=== PATIENT | female | born 1970 | race Caucasian/White ===

== ENCOUNTER 2019-06-19 07:00 | Day surgery (SDC) | payer BC ==
[2019-06-19] MEDS ORDERED: ceFAZolin 2 GM in Premix Bag 1 BAG IV ONE (07:04)
[2019-06-19] MEDS ORDERED: Sodium Chloride 0.9% 2.5 ML Syringe FLUSH PRN (07:04)
[2019-06-19] MEDS ORDERED: Sodium Chloride 0.9% 10 ML Syringe FLUSH PRN (07:04)
[2019-06-19] MEDS ORDERED: Sodium Chloride 0.9% 10 ML SDV IV PRN (07:04)
[2019-06-19] MEDS ORDERED: Midazolam 1 MG/ML 2 ML SDV ONE (07:23)
[2019-06-19] MEDS ORDERED: Propofol 200 MG/20 ML SDV ONE (07:23)
[2019-06-19] MEDS ORDERED: Dexamethasone 4 MG/ML 5 ML MDV ONE (07:24)
[2019-06-19] MEDS ORDERED: Ondansetron 4 MG/2 ML SDV ONE ×2 (07:24→09:53)
[2019-06-19] MEDS ORDERED: Rocuronium 100 MG/10 ML Syringe ONE (07:24)
[2019-06-19] MEDS ORDERED: Lidocaine 2% 5 ML SDV ONE (07:24)
[2019-06-19] MEDS ORDERED: fentaNYL 250 MCG/5 ML SDV ONE ×2 (07:24→09:08)
[2019-06-19] MEDS ORDERED: Bupivacaine 0.25% 10 ML SDV ONE ×2 (07:32→07:41)
[2019-06-19] MEDS ORDERED: Fluorescein 5 ML Vial ONE (07:32)
[2019-06-19] MEDS ORDERED: Sugammadex Sodium 200 MG/2 ML VIAL ONE (07:43)
[2019-06-19] MEDS: Lactated Ringers 1,000 ML IV SCH ×2 (07:45→16:23)
[2019-06-19] MEDS ORDERED: ceFAZolin 1 GM Vial ONE (07:53)
--- NOTE | 2019-06-19 07:53 | PCM.PREANE ---
Preanesthetic Assessment - Anesthesia/Transfusion/Family Hx Anesthesia History: Prior Anesthesia Without Reaction Other Type of Anesthesia Reaction Comment: Pt adopted, family history unknown Transfusion History: No Prior Transfusion(s) - Physical Assessment Vital Signs: Last Vital Signs Temp 97.9 F 06/19/19 07:48 Pulse 65 06/19/19 07:48 Resp 16 06/19/19 07:48 BP 150/78 H 06/19/19 07:48 Pulse Ox 100 06/19/19 07:48 Height: 5 ft 1 in Weight: 74.843 kg - Lab Values: Laboratory Last Values WBC 8.48 K/uL (4.0-11.0) 06/19/19 07:18 RBC 4.17 M/uL (4.30-5.90) L 06/19/19 07:18 Hgb 14.4 g/dL (12.0-16.0) 06/19/19 07:18 Hct 43.6 % (36.0-46.0) 06/19/19 07:18 MCV 104.6 fL (80.0-98.0) H 06/19/19 07:18 MCH 34.5 pg (27.0-32.0) H 06/19/19 07:18 MCHC 33.0 g/dL (31.0-37.0) 06/19/19 07:18 RDW Std Deviation 51.5 fl (28.0-62.0) 06/19/19 07:18 RDW Coeff of Ramiro 14 % (11.0-15.0) 06/19/19 07:18 Plt Count 194 K/uL (150-400) 06/19/19 07:18 MPV 11.20 fL (7.40-12.00) 06/19/19 07:18 Neut % (Auto) 71.6 % (48.0-80.0) 06/19/19 07:18 Lymph % (Auto) 19.0 % (16.0-40.0) 06/19/19 07:18 [place] % (Auto) 7.9 % (0.0-15.0) 06/19/19 07:18 Eos % (Auto) 1.3 % (0.0-7.0) 06/19/19 07:18 Baso % (Auto) 0.2 % (0.0-1.5) 06/19/19 07:18 Neut # (Auto) 6.1 K/uL (1.4-5.7) H 06/19/19 07:18 Lymph # (Auto) 1.6 K/uL (0.6-2.4) 06/19/19 07:18 [place] # (Auto) 0.7 K/uL (0.0-0.8) 06/19/19 07:18 Eos # (Auto) 0.1 K/uL (0.0-0.7) 06/19/19 07:18 Baso # (Auto) 0.0 K/uL (0.0-0.1) 06/19/19 07:18 Nucleated RBC % 0.0 /100WBC 06/19/19 07:18 Nucleated RBCs # 0 K/uL 06/19/19 07:18 Sodium 140 mmol/L (136-145) 06/19/19 07:18 Potassium 4.3 mmol/L (3.5-5.1) 06/19/19 07:18 Chloride 106 mmol/L (98-107) 06/19/19 07:18 Carbon Dioxide 24.4 mmol/L (21.0-32.0) 06/19/19 07:18 BUN 24 mg/dL (7.0-18.0) H 06/19/19 07:18 Creatinine 1.0 mg/dL (0.6-1.0) 06/19/19 07:18 Est Cr Clr Drug Dosing 51.92 mL/min 06/19/19 07:18 Estimated GFR (MDRD) 59.2 ml/min 06/19/19 07:18 Glucose 102 mg/dL (74-106) 06/19/19 07:18 Calcium 9.1 mg/dL (8.5-10.1) 06/19/19 07:18 HCG, Qual NEGATIVE (NEG) 06/19/19 07:18 - Allergies Allergies/Adverse Reactions: Allergies Allergy/AdvReac Type Severity Reaction Status Date / Time No Known Allergies Allergy Verified 06/16/19 06:51 PreAnesthesia Questionnaire HEENT History: Reports: Other (See Below) Other HEENT History: wears glasses, top denture Cardiovascular History: Reports: None Respiratory History: Reports: None Gastrointestinal History: Reports: Cholelithiasis Genitourinary History: Reports: None [employer] OPERATOR History: Reports: Musculoskeletal History: Reports: None Neurological History: Reports: None Psychiatric History: Reports: Depression Endocrine/Metabolic History: Reports: Obesity/BMI 30+ Hematologic History: Reports: None Immunologic History: Reports: None Oncologic (Cancer) History: Reports: Cervix Dermatologic History: Reports: Other (See Below) Other Dermatologic History: hx axillary absess-MRSA diagnosis - Infectious Disease History Infectious Disease History: Reports: Chicken Pox, MRSA - Past Surgical History Head Surgeries/Procedures: Reports: None HEENT Surgical History: Reports: None Cardiovascular Surgical History: Reports: None Respiratory Surgical History: Reports: None GI Surgical History: Reports: Cholecystectomy Female Surgical History: Reports: LEEP, Tubal Ligation Endocrine Surgical History: Reports: None Neurological Surgical History: Reports: None Musculoskeletal Surgical History: Reports: None Oncologic Surgical History: Reports: None Dermatological Surgical History: Reports: None - SUBSTANCE USE Smoking Status *Q: Former Smoker Tobacco Use Within Last Twelve Months: Cigarettes - HOME MEDS Home Medications: Home Meds Sertraline HCl 50 mg PO DAILY 06/16/19 [History] - CURRENT (IN HOUSE) MEDS Current Meds: Current Medications Lactated Ringer's (Ringers, Lactated) 1,000 mls @ 125 mls/hr IV ASDIRECTED DONNA Last Admin: 06/19/19 07:45 Dose: 125 mls/hr Sodium Chloride (Saline Flush) 10 ml FLUSH ASDIRECTED PRN PRN Reason: Keep Vein Open Sodium Chloride (Saline Flush) 2.5 ml FLUSH ASDIRECTED PRN PRN Reason: Keep Vein Open Sodium Chloride (Normal Saline) 10 ml IV ASDIRECTED PRN PRN Reason: IV Use Discontinued Medications Bupivacaine HCl (Sensorcaine-Mpf 0.25%) Confirm Administered Dose 10 ml .ROUTE .STK-MED ONE Stop: 06/19/19 07:33 Bupivacaine HCl (Sensorcaine-Mpf 0.25%) Confirm Administered Dose 10 ml .ROUTE .STK-MED ONE Stop: 06/19/19 07:42 Dexamethasone (Dexamethasone) Confirm Administered Dose 20 mg .ROUTE .STK-MED ONE Stop: 06/19/19 07:25 Fentanyl (Sublimaze) Confirm Administered Dose 250 mcg .ROUTE .STK-MED ONE Stop: 06/19/19 07:25 Fluorescein Sodium (Ak-Fluor) Confirm Administered Dose 5 ml .ROUTE .STK-MED ONE Stop: 06/19/19 07:33 Cefazolin Sodium/Dextrose 2 gm (/ Premix) 50 mls @ 100 mls/hr IV ONETIME ONE Stop: 06/19/19 07:33 Acetaminophen (Ofirmev) Confirm Administered Dose 100 mls @ as directed IV .STK- MED ONE Stop: 06/19/19 07:45 Lidocaine (Xylocaine-Mpf 2%) Confirm Administered Dose 5 ml .ROUTE .STK-MED ONE Stop: 06/19/19 07:25 Midazolam HCl (Versed 1 Mg/Ml) Confirm Administered Dose 2 mg .ROUTE .STK-MED ONE Stop: 06/19/19 07:24 Ondansetron HCl (Zofran) Confirm Administered Dose 4 mg .ROUTE .STK-MED ONE Stop: 06/19/19 07:25 Propofol (Diprivan 20 Ml) Confirm Administered Dose 200 mg .ROUTE .STK-MED ONE Stop: 06/19/19 07:24 Rocuronium [place] (Zemuron) Confirm Administered Dose 100 mg .ROUTE .STK-MED ONE Stop: 06/19/19 07:25 Sugammadex Sodium (Bridion) Confirm Administered Dose 200 mg .ROUTE .STK-MED ONE Stop: 06/19/19 07:44
--- NOTE | 2019-06-19 07:55 | PCM.PREANE ---
Preanesthetic Assessment - Anesthesia/Transfusion/Family Hx Anesthesia History: Prior Anesthesia Without Reaction Other Type of Anesthesia Reaction Comment: Pt adopted, family history unknown Family History of Anesthesia Reaction: No Transfusion History: No Prior Transfusion(s) - Review of Systems General: No Symptoms Pulmonary: No Symptoms Cardiovascular: No Symptoms Gastrointestinal: No Symptoms Neurological: No Symptoms Other: Reports: None - Physical Assessment Vital Signs: Last Vital Signs Temp 97.9 F 06/19/19 07:48 Pulse 65 06/19/19 07:48 Resp 16 06/19/19 07:48 BP 150/78 H 06/19/19 07:48 Pulse Ox 100 06/19/19 07:48 Height: 5 ft 1 in Weight: 74.843 kg ASA Class: 2 Mental Status: Alert & Oriented x3 Airway Class: Mallampati = 2 Dentition: Reports: Normal Dentition ROM/Head Extension: Full Lungs: Clear to Auscultation, Normal Respiratory Effort Cardiovascular: Regular Rate, Regular Rhythm - Lab Values: Laboratory Last Values WBC 8.48 K/uL (4.0-11.0) 06/19/19 07:18 RBC 4.17 M/uL (4.30-5.90) L 06/19/19 07:18 Hgb 14.4 g/dL (12.0-16.0) 06/19/19 07:18 Hct 43.6 % (36.0-46.0) 06/19/19 07:18 MCV 104.6 fL (80.0-98.0) H 06/19/19 07:18 MCH 34.5 pg (27.0-32.0) H 06/19/19 07:18 MCHC 33.0 g/dL (31.0-37.0) 06/19/19 07:18 RDW Std Deviation 51.5 fl (28.0-62.0) 06/19/19 07:18 RDW Coeff of Ramiro 14 % (11.0-15.0) 06/19/19 07:18 Plt Count 194 K/uL (150-400) 06/19/19 07:18 MPV 11.20 fL (7.40-12.00) 06/19/19 07:18 Neut % (Auto) 71.6 % (48.0-80.0) 06/19/19 07:18 Lymph % (Auto) 19.0 % (16.0-40.0) 06/19/19 07:18 [place] % (Auto) 7.9 % (0.0-15.0) 06/19/19 07:18 Eos % (Auto) 1.3 % (0.0-7.0) 06/19/19 07:18 Baso % (Auto) 0.2 % (0.0-1.5) 06/19/19 07:18 Neut # (Auto) 6.1 K/uL (1.4-5.7) H 06/19/19 07:18 Lymph # (Auto) 1.6 K/uL (0.6-2.4) 06/19/19 07:18 [place] # (Auto) 0.7 K/uL (0.0-0.8) 06/19/19 07:18 Eos # (Auto) 0.1 K/uL (0.0-0.7) 06/19/19 07:18 Baso # (Auto) 0.0 K/uL (0.0-0.1) 06/19/19 07:18 Nucleated RBC % 0.0 /100WBC 06/19/19 07:18 Nucleated RBCs # 0 K/uL 06/19/19 07:18 Sodium 140 mmol/L (136-145) 06/19/19 07:18 Potassium 4.3 mmol/L (3.5-5.1) 06/19/19 07:18 Chloride 106 mmol/L (98-107) 06/19/19 07:18 Carbon Dioxide 24.4 mmol/L (21.0-32.0) 06/19/19 07:18 BUN 24 mg/dL (7.0-18.0) H 06/19/19 07:18 Creatinine 1.0 mg/dL (0.6-1.0) 06/19/19 07:18 Est Cr Clr Drug Dosing 51.92 mL/min 06/19/19 07:18 Estimated GFR (MDRD) 59.2 ml/min 06/19/19 07:18 Glucose 102 mg/dL (74-106) 06/19/19 07:18 Calcium 9.1 mg/dL (8.5-10.1) 06/19/19 07:18 HCG, Qual NEGATIVE (NEG) 06/19/19 07:18 - Allergies Allergies/Adverse Reactions: Allergies Allergy/AdvReac Type Severity Reaction Status Date / Time No Known Allergies Allergy Verified 06/19/19 07:54 - Anesthesia Plan Pre-Op Medication Ordered: None - Acknowledgements Anesthesia Type Planned: General Anesthesia Pt an Appropriate Candidate for the Planned Anesthesia: Yes Alternatives and Risks of Anesthesia Discussed w Pt/Guardian: Yes Pt/Guardian Understands and Agrees with Anesthesia Plan: Yes Additional Comments: PMH: smoker PLAN: get PreAnesthesia Questionnaire HEENT History: Reports: Other (See Below) Other HEENT History: wears glasses, top denture Cardiovascular History: Reports: None Respiratory History: Reports: None Gastrointestinal History: Reports: Cholelithiasis Genitourinary History: Reports: None 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: Musculoskeletal History: Reports: None Neurological History: Reports: None Psychiatric History: Reports: Depression Endocrine/Metabolic History: Reports: Obesity/BMI 30+ Hematologic History: Reports: None Immunologic History: Reports: None Oncologic (Cancer) History: Reports: Cervix Dermatologic History: Reports: Other (See Below) Other Dermatologic History: hx axillary absess-MRSA diagnosis - Infectious Disease History Infectious Disease History: Reports: Chicken Pox, MRSA - Past Surgical History Head Surgeries/Procedures: Reports: None HEENT Surgical History: Reports: None Cardiovascular Surgical History: Reports: None Respiratory Surgical History: Reports: None GI Surgical History: Reports: Cholecystectomy Female Surgical History: Reports: LEEP, Tubal Ligation Endocrine Surgical History: Reports: None Neurological Surgical History: Reports: None Musculoskeletal Surgical History: Reports: None Oncologic Surgical History: Reports: None Dermatological Surgical History: Reports: None - SUBSTANCE USE Smoking Status *Q: Former Smoker Tobacco Use Within Last Twelve Months: Cigarettes - HOME MEDS Home Medications: Home Meds Sertraline HCl 50 mg PO DAILY 06/16/19 [History] - CURRENT (IN HOUSE) MEDS Current Meds: Current Medications Lactated Ringer's (Ringers, Lactated) 1,000 mls @ 125 mls/hr IV ASDIRECTED DONNA Last Admin: 06/19/19 07:45 Dose: 125 mls/hr Sodium Chloride (Saline Flush) 10 ml FLUSH ASDIRECTED PRN PRN Reason: Keep Vein Open Sodium Chloride (Saline Flush) 2.5 ml FLUSH ASDIRECTED PRN PRN Reason: Keep Vein Open Sodium Chloride (Normal Saline) 10 ml IV ASDIRECTED PRN PRN Reason: IV Use Discontinued Medications Bupivacaine HCl (Sensorcaine-Mpf 0.25%) Confirm Administered Dose 10 ml .ROUTE .STK-MED ONE Stop: 06/19/19 07:33 Bupivacaine HCl (Sensorcaine-Mpf 0.25%) Confirm Administered Dose 10 ml .ROUTE .STK-MED ONE Stop: 06/19/19 07:42 Dexamethasone (Dexamethasone) Confirm Administered Dose 20 mg .ROUTE .STK-MED ONE Stop: 06/19/19 07:25 Fentanyl (Sublimaze) Confirm Administered Dose 250 mcg .ROUTE .STK-MED ONE Stop: 06/19/19 07:25 Fluorescein Sodium (Ak-Fluor) Confirm Administered Dose 5 ml .ROUTE .STK-MED ONE Stop: 06/19/19 07:33 Cefazolin Sodium/Dextrose 2 gm (/ Premix) 50 mls @ 100 mls/hr IV ONETIME ONE Stop: 06/19/19 07:33 Acetaminophen (Ofirmev) Confirm Administered Dose 100 mls @ as directed IV .STK- MED ONE Stop: 06/19/19 07:45 Lidocaine (Xylocaine-Mpf 2%) Confirm Administered Dose 5 ml .ROUTE .STK-MED ONE Stop: 06/19/19 07:25 Midazolam HCl (Versed 1 Mg/Ml) Confirm Administered Dose 2 mg .ROUTE .STK-MED ONE Stop: 06/19/19 07:24 Ondansetron HCl (Zofran) Confirm Administered Dose 4 mg .ROUTE .STK-MED ONE Stop: 06/19/19 07:25 Propofol (Diprivan 20 Ml) Confirm Administered Dose 200 mg .ROUTE .STK-MED ONE Stop: 06/19/19 07:24 Rocuronium [place] (Zemuron) Confirm Administered Dose 100 mg .ROUTE .STK-MED ONE Stop: 06/19/19 07:25 Sugammadex Sodium (Bridion) Confirm Administered Dose 200 mg .ROUTE .STK-MED ONE Stop: 06/19/19 07:44
[2019-06-19] MEDS ORDERED: Vasopressin 20 Units/1 ML MDV ONE (08:11)
[2019-06-19] MEDS ORDERED: Furosemide 40 MG/4 ML VIAL ONE (08:34)
[2019-06-19] MEDS ORDERED: Ketamine 500 mg/10 ML MDV ONE (09:09)
[2019-06-19] MEDS ORDERED: Ketorolac 30 MG/ML SDV ONE (09:53)
[2019-06-19] MEDS ORDERED: Octyl 2-Cyanoacrylate 1 Tube ONE (10:44)
[2019-06-19] MEDS ORDERED: Ketorolac 30 MG/ML SDV IVPUSH PRN (11:13)
[2019-06-19] MEDS ORDERED: Morphine 4 MG/ML Syringe IVPUSH PRN (11:13)
[2019-06-19] MEDS ORDERED: Ketorolac 30 MG/ML SDV IVPUSH ONE (11:13)
[2019-06-19] MEDS ORDERED: Ondansetron 4 MG/2 ML SDV IVPUSH PRN (11:13)
[2019-06-19] MEDS ORDERED: Acetaminophen/oxyCODONE 325-5 MG Tab PO PRN (11:13)
[2019-06-19] MEDS ORDERED: Promethazine 25 MG/ML SDV IM PRN (11:13)
--- NOTE | 2019-06-19 11:22 | PCM.OPNOTE ---
- General Post-Op/Procedure Note Date of Surgery/Procedure: 06/19/19 Operative Procedure(s): Laparoscopic assisted vaginal hysterectomy. Bilateral salphingectomy Findings: Normal sized anteverted uterus Evidence of bilateral tubal ligation noted Intact bladder Bilateral Ureteral jets Pre Op Diagnosis: 48yo P6 with AUB and Hydrosalphinx Post-Op Diagnosis: Same Anesthesia Technique: General ET Tube Primary Surgeon: Nadiya Rincon Secondary Surgeon: Fabian Childs Dramatic Arts Historian: Annita Motley Pathology: Uterus and tubes Fluid Replacement, Intraop: 1,800 Output, Urine Amount: 250 EBL in mLs: 75 Complications: None Condition: Good
[2019-06-19] MEDS ORDERED: Acetaminophen 1,000 MG in Premix Bag 1 BAG IV SCH (11:30)
--- NOTE | 2019-06-19 12:17 | PCM.POSTAN ---
POST ANESTHESIA ASSESSMENT - MENTAL STATUS Mental Status: Alert, Oriented - VITAL SIGNS Vital Signs: Last Vital Signs Temp 97.0 F 06/19/19 11:05 Pulse 52 L 06/19/19 11:45 Resp 10 L 06/19/19 11:45 BP 141/71 H 06/19/19 11:45 Pulse Ox 99 06/19/19 11:45 - RESPIRATORY Respiratory Status: Respiratory Rate WNL, Airway Patent, O2 Saturation Stable - CARDIOVASCULAR CV Status: Pulse Rate WNL, Blood Pressure Stable - GASTROINTESTINAL GI Status: No Symptoms - PAIN Pain Score: 5 - POST OP HYDRATION Hydration Status: Adequate & Stable - OBSERVATIONS Free Text/Narrative:: sleeping with sats of 94-96 on RA, o evidance of obstructive sx when sleeping. C/o pain when aroused, but easily falls asleep again.
[2019-06-19] MEDS: Metoclopramide 10 MG/2 ML SDV IVPUSH SCH ×2 (14:10→20:30)
[2019-06-19] MEDS: Acetaminophen/oxyCODONE 325-5 MG Tab PO PRN (17:56)
[2019-06-20] MEDS: Lactated Ringers 1,000 ML IV SCH ×2 (00:21→08:15)
[2019-06-20] MEDS: Acetaminophen/oxyCODONE 325-5 MG Tab PO PRN ×2 (00:25→08:14)
[2019-06-20] MEDS: Metoclopramide 10 MG/2 ML SDV IVPUSH SCH (03:00)
[2019-06-20 07:52] VITALS: BP 119/53
--- NOTE | 2019-06-20 09:13 | PCM.SURGPN ---
- General Info Date of Service: 06/20/19 Date of Surgery/Procedure: 06/20/19 POD#: 1 Post-Op Diagnosis: AUB and Hydrosalphinx , s/p LAVH/BS Functional Status: Reports: Pain Controlled, Tolerating Diet, Ambulating, Urinating - Review of Systems General: Reports: No Symptoms HEENT: Reports: No Symptoms Pulmonary: Reports: No Symptoms Cardiovascular: Reports: No Symptoms Gastrointestinal: Reports: No Symptoms Genitourinary: Reports: No Symptoms Musculoskeletal: Reports: No Symptoms Skin: Reports: No Symptoms Neurological: Reports: No Symptoms Psychiatric: Reports: No Symptoms - Patient Data Vitals - Most Recent: Last Vital Signs Temp 36.4 C 06/20/19 07:51 Pulse 66 06/20/19 07:51 Resp 16 06/20/19 07:51 BP 119/53 L 06/20/19 07:51 Pulse Ox 99 06/20/19 07:51 Weight - Most Recent: 74.843 kg I&O - Last 24 Hours: Intake & Output 06/19/19 06/20/19 06/20/19 22:59 06:59 14:59 Intake Total 420 2025 Output Total 375 1100 Balance 45 925 Lab Results Last 24 Hrs: Laboratory Results - last 24 hr 06/20/19 06/20/19 Range/Units 05:54 05:54 WBC 14.49 H (4.0-11.0) K/uL RBC 3.43 L (4.30-5.90) M/uL Hgb 11.7 L (12.0-16.0) g/dL Hct 35.8 L (36.0-46.0) % MCV 104.4 H (80.0-98.0) fL MCH 34.1 H (27.0-32.0) pg MCHC 32.7 (31.0-37.0) g/dL RDW Std Deviation 51.1 (28.0-62.0) fl RDW Coeff of Ramiro 13 (11.0-15.0) % Plt Count 171 (150-400) K/uL MPV 11.30 (7.40-12.00) fL Neut % (Auto) 82.1 H (48.0-80.0) % Lymph % (Auto) 11.4 L (16.0-40.0) % [place] % (Auto) 6.3 (0.0-15.0) % Eos % (Auto) 0.1 (0.0-7.0) % Baso % (Auto) 0.1 (0.0-1.5) % Neut # (Auto) 11.9 H (1.4-5.7) K/uL Lymph # (Auto) 1.7 (0.6-2.4) K/uL [place] # (Auto) 0.9 H (0.0-0.8) K/uL Eos # (Auto) 0.0 (0.0-0.7) K/uL Baso # (Auto) 0.0 (0.0-0.1) K/uL Nucleated RBC % 0.0 /100WBC Nucleated RBCs # 0 K/uL Sodium 141 (136-145) mmol/L Potassium 4.0 (3.5-5.1) mmol/L Chloride 108 H (98-107) mmol/L Carbon Dioxide 26.1 (21.0-32.0) mmol/L BUN 21 H (7.0-18.0) mg/dL Creatinine 1.2 H (0.6-1.0) mg/dL Est Cr Clr Drug Dosing 43.26 mL/min Estimated GFR (MDRD) 47.9 ml/min Glucose 101 (74-106) mg/dL Calcium 8.1 L (8.5-10.1) mg/dL Med Orders - Current: Current Medications Lactated Ringer's (Ringers, Lactated) 1,000 mls @ 125 mls/hr IV ASDIRECTED [facility] Last Admin: 06/20/19 08:15 Dose: 125 mls/hr Ketorolac Tromethamine (Toradol) 30 mg IVPUSH Q6H PRN PRN Reason: Pain (severe 7-10) Stop: 06/24/19 11:13 Metoclopramide HCl (Reglan) 10 mg IVPUSH Q8H [facility] Last Admin: 06/20/19 03:00 Dose: 10 mg Morphine Sulfate (Morphine) 4 mg IVPUSH Q2H PRN PRN Reason: Pain (severe 7-10) Last Admin: 06/19/19 14:23 Dose: 4 mg Ondansetron HCl (Zofran) 4 mg IVPUSH Q6H PRN PRN Reason: Nausea/Vomiting Oxycodone/Acetaminophen (Percocet 325-5 Mg) 1 tab PO Q4H PRN PRN Reason: Pain (moderate 4-6) Oxycodone/Acetaminophen (Percocet 325-5 Mg) 2 tab PO Q4H PRN PRN Reason: Pain (moderate 4-6) Last Admin: 06/20/19 08:14 Dose: 2 tab Promethazine HCl (Phenergan) 25 mg IM Q6H PRN PRN Reason: Nausea/Vomiting Sodium Chloride (Saline Flush) 10 ml FLUSH ASDIRECTED PRN PRN Reason: Keep Vein Open Sodium Chloride (Saline Flush) 2.5 ml FLUSH ASDIRECTED PRN PRN Reason: Keep Vein Open Sodium Chloride (Normal Saline) 10 ml IV ASDIRECTED PRN PRN Reason: IV Use Discontinued Medications Bupivacaine HCl (Sensorcaine-Mpf 0.25%) Confirm Administered Dose 10 ml .ROUTE .STK-MED ONE Stop: 06/19/19 07:33 Bupivacaine HCl (Sensorcaine-Mpf 0.25%) Confirm Administered Dose 10 ml .ROUTE .STK-MED ONE Stop: 06/19/19 07:42 Cefazolin Sodium (Ancef) Confirm Administered Dose 2 gm .ROUTE .STK-MED ONE Stop: 06/19/19 07:54 Dexamethasone (Dexamethasone) Confirm Administered Dose 20 mg .ROUTE .STK-MED ONE Stop: 06/19/19 07:25 Fentanyl (Sublimaze) Confirm Administered Dose 250 mcg .ROUTE .STK-MED ONE Stop: 06/19/19 07:25 Fentanyl (Sublimaze) Confirm Administered Dose 250 mcg .ROUTE .STK-MED ONE Stop: 06/19/19 09:09 Fluorescein Sodium (Ak-Fluor) Confirm Administered Dose 5 ml .ROUTE .STK-MED ONE Stop: 06/19/19 07:33 Furosemide (Lasix) Confirm Administered Dose 40 mg .ROUTE .STK-MED ONE Stop: 06/19/19 08:35 Cefazolin Sodium/Dextrose 2 gm (/ Premix) 50 mls @ 100 mls/hr IV ONETIME ONE Stop: 06/19/19 07:33 Last Admin: 06/19/19 13:45 Dose: Not Given Acetaminophen (Ofirmev) Confirm Administered Dose 100 mls @ as directed IV .STK- MED ONE Stop: 06/19/19 07:45 Acetaminophen 1,000 mg/ Premix 100 mls @ 400 mls/hr IV Q6H DONNA Last Admin: 06/19/19 13:45 Dose: Not Given Ketamine HCl (Ketalar) Confirm Administered Dose 500 mg .ROUTE .STK-MED ONE Stop: 06/19/19 09:10 Ketorolac Tromethamine (Toradol) Confirm Administered Dose 30 mg .ROUTE .STK- MED ONE Stop: 06/19/19 09:54 Ketorolac Tromethamine (Toradol) 30 mg IVPUSH ONETIME ONE Stop: 06/19/19 11:14 Last Admin: 06/19/19 12:27 Dose: Not Given Lidocaine (Xylocaine-Mpf 2%) Confirm Administered Dose 5 ml .ROUTE .STK-MED ONE Stop: 06/19/19 07:25 Midazolam HCl (Versed 1 Mg/Ml) Confirm Administered Dose 2 mg .ROUTE .STK-MED ONE Stop: 06/19/19 07:24 Octyl Cyanoacrylate (Dermabond Advance) Confirm Administered Dose 1 applic .ROUTE .STK-MED ONE Stop: 06/19/19 10:45 Ondansetron HCl (Zofran) Confirm Administered Dose 4 mg .ROUTE .STK-MED ONE Stop: 06/19/19 07:25 Ondansetron HCl (Zofran) Confirm Administered Dose 4 mg .ROUTE .STK-MED ONE Stop: 06/19/19 09:54 Propofol (Diprivan 20 Ml) Confirm Administered Dose 200 mg .ROUTE .STK-MED ONE Stop: 06/19/19 07:24 Rocuronium [place] (Zemuron) Confirm Administered Dose 100 mg .ROUTE .STK-MED ONE Stop: 06/19/19 07:25 Sugammadex Sodium (Bridion) Confirm Administered Dose 200 mg .ROUTE .STK-MED ONE Stop: 06/19/19 07:44 Vasopressin (Vasopressin) Confirm Administered Dose 20 units .ROUTE .STK-MED ONE Stop: 06/19/19 08:12 - Exam Wound/Incisions: Dressing Dry and Intact General: Alert, Oriented HEENT: Pupils Equal Neck: Supple Lungs: Clear to Auscultation Cardiovascular: Regular Rate, Regular Rhythm GI/Abdominal Exam: Normal Bowel Sounds, Other (Laparoscopic incision c/d/i ) Extremities: Normal Inspection Neurological: No New Focal Deficit Psy/Mental Status: Alert - Problem List & Annotations (1) Status post laparoscopic assisted vaginal hysterectomy (LAVH) SNOMED Code(s): 924779106, 93649593, 749191404 Code(s): Z90.710 - ACQUIRED ABSENCE OF BOTH CERVIX AND UTERUS Status: Acute Current Visit: Yes - Problem List Review Problem List Initiated/Reviewed/Updated: Yes - My Orders Last 24 Hours: Active Orders 24 hr Category Date Time Status Antiembolic Devices [RC] PER UNIT ROUTINE Care 06/19/19 11:13 Active Notify Provider Intake and Out [RC] ASDIRECTED Care 06/19/19 11:13 Active Notify Provider Vital Signs [RC] ASDIRECTED Care 06/19/19 11:13 Active Oxygen Therapy [RC] ASDIRECTED Care 06/19/19 11:13 Active RT Incentive Spirometry [RC] Q2HWA Care 06/19/19 11:13 Active Up With Assistance [RC] PER UNIT ROUTINE Care 06/19/19 11:13 Active Up ad Cathy [RC] PER UNIT ROUTINE Care 06/19/19 11:13 Active Urinary Catheter Removal [RC] Per Unit Routine Care 06/19/19 11:13 Active Vital Signs [RC] Q4H Care 06/19/19 11:13 Active Regular Diet [DIET] Diet 06/19/19 Lunch Active Acetaminophen/oxyCODONE [Percocet 325-5 MG] Med 06/19/19 11:13 Active 1 tab PO Q4H PRN Acetaminophen/oxyCODONE [Percocet 325-5 MG] Med 06/19/19 11:13 Active 2 tab PO Q4H PRN Ketorolac [Toradol] Med 06/19/19 11:13 Active 30 mg IVPUSH Q6H PRN Metoclopramide [Reglan] Med 06/19/19 11:30 Active 10 mg IVPUSH Q8H Morphine Med 06/19/19 11:13 Active 4 mg IVPUSH Q2H PRN Ondansetron [Zofran] Med 06/19/19 11:13 Active 4 mg IVPUSH Q6H PRN Promethazine [Phenergan] Med 06/19/19 11:13 Active 25 mg IM Q6H PRN Peripheral IV Discontinue [OM.PC] Routine Oth 06/19/19 11:13 Ordered Sequential Compression Device [OM.PC] Per Unit Routine Oth 06/19/19 11:13 Ordered Resuscitation Status Routine Resus Stat 06/19/19 11:13 Ordered Medication Orders Lactated Ringer's (Ringers, Lactated) 1,000 mls @ 125 mls/hr IV ASDIRECTED [facility] Last Admin: 06/20/19 08:15 Dose: 125 mls/hr Infusion: 06/20/19 08:15 Dose: 125 mls/hr Admin: 06/20/19 00:21 Dose: 125 mls/hr Infusion: 06/20/19 00:21 Dose: 125 mls/hr Admin: 06/19/19 16:23 Dose: 125 mls/hr Infusion: 06/19/19 15:45 Dose: 125 mls/hr Admin: 06/19/19 07:45 Dose: 125 mls/hr Ketorolac Tromethamine (Toradol) 30 mg IVPUSH Q6H PRN PRN Reason: Pain (severe 7-10) Stop: 06/24/19 11:13 Metoclopramide HCl (Reglan) 10 mg IVPUSH Q8H [facility] Last Admin: 06/20/19 03:00 Dose: 10 mg Admin: 06/19/19 20:30 Dose: 10 mg Admin: 06/19/19 14:10 Dose: 10 mg Morphine Sulfate (Morphine) 4 mg IVPUSH Q2H PRN PRN Reason: Pain (severe 7-10) Last Admin: 06/19/19 14:23 Dose: 4 mg Ondansetron HCl (Zofran) 4 mg IVPUSH Q6H PRN PRN Reason: Nausea/Vomiting Oxycodone/Acetaminophen (Percocet 325-5 Mg) 1 tab PO Q4H PRN PRN Reason: Pain (moderate 4-6) Oxycodone/Acetaminophen (Percocet 325-5 Mg) 2 tab PO Q4H PRN PRN Reason: Pain (moderate 4-6) Last Admin: 06/20/19 08:14 Dose: 2 tab Admin: 06/20/19 00:25 Dose: 2 tab Admin: 06/19/19 17:56 Dose: 2 tab Promethazine HCl (Phenergan) 25 mg IM Q6H PRN PRN Reason: Nausea/Vomiting Sodium Chloride (Saline Flush) 10 ml FLUSH ASDIRECTED PRN PRN Reason: Keep Vein Open Sodium Chloride (Saline Flush) 2.5 ml FLUSH ASDIRECTED PRN PRN Reason: Keep Vein Open Sodium Chloride (Normal Saline) 10 ml IV ASDIRECTED PRN PRN Reason: IV Use - Assessment Assessment (Free Text/Narrative):: 48yo P6 s/p LAVH /BS POD1 , Pain control is fair Ceballos out voided Tolerated regular diet Ambulating - Plan Plan (Free Text/Narrative):: Discharge home with pain medication
--- NOTE | 2019-06-20 12:07 | PCM48HPAN ---
Post Anesthesia Note - EVALUATION WITHIN 48HRS OF ANESTHETIC Vital Signs in Normal Range: Yes Patient Participated in Evaluation: Yes Respiratory Function Stable: Yes Airway Patent: Yes Cardiovascular Function Stable: Yes Hydration Status Stable: Yes Pain Control Satisfactory: Yes Nausea and Vomiting Control Satisfactory: Yes Mental Status Recovered: Yes Vital Signs: Last Vital Signs Temp 97.6 F 06/20/19 07:51 Pulse 66 06/20/19 07:51 Resp 16 06/20/19 07:51 BP 119/53 L 06/20/19 07:51 Pulse Ox 99 06/20/19 07:51
--- NOTE | 2019-06-21 19:22 | OR ---
DATE OF PROCEDURE:06/19/2019 SURGEON: PIA Childs CUSTODY OFFICER: Medical student, Tolu Ariza PREOPERATIVE DIAGNOSIS: A 48-year-old, para 6, with abnormal uterine bleeding and hydrosalpinx. POSTOPERATIVE DIAGNOSIS: A 48-year-old, para 6, with abnormal uterine bleeding and hydrosalpinx. PROCEDURES: Laparoscopic assisted vaginal hysterectomy, bilateral salpingectomy, Pagan Culdoplasty Cystoscopy. ANAESTHESIA General Endotracheal ESTIMATED BLOOD LOSS: 75. IV FLUIDS: 1800. COMPLICATIONS: None. URINE OUTPUT: 250. PATHOLOGY: Uterus and tubes. NOTES AND FINDINGS: Normal-sized anteverted uterus, evidence of bilateral tubal ligation noted, intact bladder, and bilateral ureteral jets also noted. BRIEF HISTORY: She is a patient who came in complaining of very heavy menstrual flow. She was investigated and noted to have hydrosalpinx. EMB was done which was negative. The patient declined any other form of management. She wanted to proceed with a hysterectomy. DESCRIPTION OF PROCEDURE: The patient was taken to the operating room where she was placed in dorsal lithotomy position with an Derrick stirrups. She was prepared and draped in the normal sterile fashion. A sevilla catheter was placed. A speculum was used to expose the cervix after being prepped and the anterior lip of the cervix was clamped with Allis clamp. The cervix was dilated to accommodate the uterine manipulator, which was introduced. Then, attention was placed to the abdomen. 0.25% Marcaine was placed in the subumbilical fold and 5 mm incision was made. The abdomen was entered via direct entry with the fiberoptic trocar. Pneumoperitoneum was obtained to 15 mmHg. Then, right and left lower quadrant incisions were made 2 fingerbreadths above and superior to the anterior superior iliac spine. Then, the 5 mm trocar with balloon was placed in with direct entry via direct visualization. The patient was placed in the Trendelenburg position. The uterus was elevated with the aid of the uterine manipulator . The bilateral ureters were identified. The bowel was retracted out of the operative field. With the aid of the LigaSure device, the fallopian tubes were then coagulated and cut all the way to the cornua. The round ligament was also transected. Then, the broad ligament was entered in and the bladder flap was created. Prior to this, the ovarian ligament was coagulated and cut to separate the ovaries from the uterus. Then, the bladder flap was created. With LigaSure device, the uterine vessel was skeletonized. It was also coagulated and cut. Same was done on the left side after the bladder flap was created and the fallopian tube was transected all the way to the cornua. the round ligament was also transected. Uterine vessels were also coagulated. Bladder flap was completed on the opposite side Then, attention was placed to the vagina region where the cervix was again exposed with the aid of a weighted speculum and a right angle retractor . The cervicovaginal junction was infiltrated with 10ml of ( 20units in 50 NS) Then a circumferential incision was made at the cervicovaginal junction with the bovie. The posterior cul-de-sac was entered sharply with the deshpande scissor. The long weighted speculum was placed into the posterior cul-de-sac. The anterior colpotomy was also made with careful dissection of the vesicouterine plane to reach the periotenoum. The right angled retractor was then placed in the Vesicouterine space. On the right, with the Homar clamp , the uterosacral ligament was clamped, cut, suture ligated with 2.0 vicryl .. Subsequently, the cardinal ligament was also clamped, cut, and suture ligated with 2.0 vicryl . The steps was repeated on the left side. With this, the uterus detached from supporting ligament it was removed from the vaginal.. The pedicles were inspected and noted to be hemostatic. The posterior vaginal wall was suspended to the uterosacral ligament via a Pagan culdoplasty. Then, the vaginal colpotomy was sutured with 0 Polysorb. A cystoscopy was done and the bilateral ureteral jet was noted. The bladder was noted to be intact. Attention was then paid to the abdomen. The incision was inspected and noted to be hemostatic. All instrument and pad counts were correct x2. The pneumoperitoneum in the abdomen was reduced to 5mmhg . Hemostasis was still noted and the trocars were removed under direct visualization. The laparoscopic incision was approximated with 3.0 monocryl . The patient tolerated the procedure well and was taken to the recovery room in stable condition. TOSHIA BELLE /[id number] CESAR
== END 2019-06-20 11:20 | disposition home or self-care (01) ==
LOC: MW.SDS 07:00 → MW.MS 11:24 → MW.SDS 06-20 11:20
PROVIDERS: ATTEND Obstetrics & Gynecology
DX: N80.0 Endometriosis of uterus (principal); N70.11 Chronic salpingitis; N87.9 Dysplasia of cervix uteri, unspecified; N88.8 Other specified noninflammatory disorders of cervix uteri; F32.9 Major depressive disorder, single episode, unspecified; F17.210 Nicotine dependence, cigarettes, uncomplicated; Z79.899 Other long term (current) drug therapy
CPT/HCPCS: 36415; 58552; 80048; 84703; 85025; 86850; 86900; 86901; A9270; J0131; J0690; J1100; J1885; J1940; J2001; J2250; J2270; J2405; J2704; J2765; J3010; J3490; J7120